=== PATIENT | female | born 1950 | race Caucasian/White ===

== ENCOUNTER 2021-09-09 17:31 | Emergency (ER) | payer OTHER, SELFPAY ==
--- NOTE | ~2021-09-09 | XR_ITS ---
EXAMINATION: XR RIBS, RIGHT CLINICAL INFORMATION: Status post fall COMPARISON: None TECHNIQUE: Frontal view of the chest with 3 oblique views of the right ribs were obtained. FINDINGS: Lungs are hypoexpanded with no superimposed focal infiltrate, effusion, edema, or pneumothorax. Mild basilar markings more likely due to atelectasis. Old healed fractures of the anterolateral right eighth and ninth ribs noted but no acute displaced fracture. Degenerative changes in the spine. XR/XR ribs RT min 3V w CXR1V IMPRESSION: Old healed fractures of the right eighth and ninth ribs but no acute displaced fracture.
[2021-09-09 17:52] VITALS: BP 145/71; PULSE 89; RESP 18; TEMP 36.7; O2SAT 97; BMI 36.3
--- NOTE | 2021-09-09 20:18 | ED_ITS ---
HPI - Fall General Chief Complaint: Fall Stated Complaint: Fall/R side pain no thinners Time Seen by Provider: 09/09/21 20:18 Source: patient Mode of arrival: ambulatory Limitations: no limitations History of Present Illness HPI Narrative: 71-year-old female presents to the ER with right anterior chest wall pain and right rib pain after she fell onto her right side after tripping on a hose while in her garden earlier today. She not have any lightheadedness or dizziness before the fall. She fell onto her right breast and chest. She sustained abrasions to her right knee and right elbow. She has bruising of her left upper inner arm. Her most pain is under her right breast over the ribs. It hurts when she takes a deep breath. She has a history of rib fractures on that side several years ago after a fall. MD complaint: fall Onset (ago): hour(s) Fall from: standing Fall witnessed: yes, by family Place fall occurred: home Loss of consciousness: none Prolonged down time: no Symptoms prior to fall: none Context: tripped/slipped Location of injury: chest Location of injury - extremities: left: arm and bilateral: knee Severity: severe Severity scale (1-10): 8 Quality: sharp Associated symptoms (after fall): denies Related Data Previous Rx's Medication Instructions Recorded hydrocodone 5 mg-acetaminophen 325 1 tab PO Q8H PRN #6 tab 09/09/21 mg tablet ibuprofen 600 mg tablet 600 mg PO Q8H PRN #20 tab 09/09/21 Allergies Allergy/AdvReac Type Severity Reaction Status Date / Time No Known Allergies Allergy Verified 09/09/21 17:57 [No Known Allergies*] Review of Systems Review of Systems: Constitutional: No Fever, No Chills ENT/Mouth: No sore throat, No Rhinorrhea Cardiovascular: + Chest Pain, No SOB, No Orthopnea, + Edema (chronic) Respiratory: No Cough, No Sputum, No Wheezing, No dyspnea Gastrointestinal: No Nausea, No Vomiting, No Diarrhea, No abdominal Pain Genitourinary: No Dysuria, No Urinary Frequency, No Hematuria Musculoskeletal: + joint pain, + Myalgias Skin:+ Skin Lesions, No rash Neuro: No Weakness, No Numbness, No Dizziness, No Headache Psych: No Anxiety/Panic, No Depression Heme/Lymph: +Bruising, No Lymphadenopathy Endocrine: No Polyuria, No Polydipsia PMFSH Social History Social History Advance Directives: No Advance Directives Information Provided: No Physical Exam Vital Signs: Vital Signs: Last Vital Signs Temp 98.0 F 09/09/21 17:52 Pulse 89 09/09/21 17:52 Resp 18 09/09/21 17:52 BP 145/71 H 09/09/21 17:52 Pulse Ox 97 09/09/21 17:52 BMI result Body Mass Index 36.3 Appearance: Alert. Oriented X3. No acute distress. Eyes: Pupils equal, round and reactive to light. ENT: Pharynx normal. Neck: Normal inspection. Neck supple. No midline tenderness. CVS: Normal heart rate and rhythm. Pulses normal. Audible systolic murmur. Respiratory: No respiratory distress. Breath sounds normal. No ecchymosis on chest wall. Under right breast over lower ribs there is moderate tenderness. No crepitus Abdomen: Soft and nontender. +BS x4. No ecchymosis Skin: Skin warm and dry. Normal skin color. Normal skin turgor. No rashes. Extremities: Superficial abrasions to the bilateral knees. 1+ lower extremity edema. Left upper inner arm with a moderate irregularly shaped area of ecchymos is. Mildly tender. Compartments are soft and compressible. Neurovascularly intact distally. Neuro: Oriented X 3. No motor deficit. No sensory deficit. Slow but steady gait. Course Course Course Narrative: 71-year-old female with a history of hypertension, moderate aortic stenosis who presents to the ER for evaluation of right-sided rib pain after mechanical fall earlier today. No head strike or loss of consciousness. She is not on anticoagulation. X-rays of the ribs do not show any acute displaced fractures. Her old fractures are visualized. She was likely has a rib contusion. Will treat with short course of narcotic pain medication and NSAIDs. She was advised to perform pulmonary exercises with deep breathing several times per hour to help prevent pneumonia. She is stable for discharge home with supportive care and outpatient follow-up. Critical Care Time Critical Care Time Critical Care Time: No Discharge Plan Discharge Clinical Impression: Contusion of rib on right side, Traumatic ecchymosis of left upper arm, Abrasion Patient Disposition: Home, Self-Care Instructions: Rib Contusion (ED) Additional Instructions: Your x-rays today did not show any acute rib fractures. Recommend taking the prescribed medications as directed for pain. It is important that you do deep breathing exercises, take several deep breaths every hour. This helps prevent pneumonia. Rest and apply ice to affected areas several times per day Follow-up with your doctor as needed. Prescriptions: New hydrocodone-acetaminophen 5-325 mg tablet 1 tab PO Q8H PRN (Reason: severe pain (scale score 7-10)) Qty: 6 0RF ibuprofen 600 mg tablet 600 mg PO Q8H PRN (Reason: pain) Qty: 20 0RF
[2021-09-09] MEDS: Ibuprofen 600 MG TABLET PO (20:57)
[2021-09-09] MEDS: HYDROcodone Bit/Acetam 5/325 TABLET 1 TAB PO (20:57)
== END 2021-09-09 21:10 | disposition home or self-care (01) ==
PROVIDERS: Emergency Provider Internal Medicine; PCP Internal Medicine
DX: S20.211A Contusion of right front wall of thorax, initial encounter (principal); S40.022A Contusion of left upper arm, initial encounter; S80.212A Abrasion, left knee, initial encounter; S80.211A Abrasion, right knee, initial encounter; I10 Essential (primary) hypertension; W01.0XXA Fall on same level from slipping, tripping and stumbling without subsequent striking against object, initial encounter; Y93.9 Activity, unspecified; Y92.007 Garden or yard of unspecified non-institutional (private) residence as the place of occurrence of the external cause; Y99.9 Unspecified external cause status
CPT/HCPCS: 71101; 99282; 99283